=== PATIENT | male | born 1975 | race Caucasian/White ===

== ENCOUNTER 2016-06-07 01:18 | Emergency (ER) | payer OTHER ==
[~2016-06-07] VITALS: Ht 172.7 cm; Wt 88.5 kg
[2016-06-07] MEDS ORDERED: TDAP [DIPH/PERTUSSIS/TET] 0.5 ML VIAL IM ONE ×2 (01:52→02:00)
[2016-06-07 04:43] VITALS: BP 120/80
== END 2016-06-07 04:46 | disposition home or self-care (01) ==
LOC: ER 01:21
DX: S61.412A Laceration without foreign body of left hand, initial encounter (principal); F10.20 Alcohol dependence, uncomplicated; W45.8XXA Other foreign body or object entering through skin, initial encounter; Y93.89 Activity, other specified; Y92.89 Other specified places as the place of occurrence of the external cause; Y99.8 Other external cause status
CPT/HCPCS: 73130; 90471; 90715; 99284; A4606; A6402; Z7610